=== PATIENT | male | born 1945 | race Caucasian/White ===

== ENCOUNTER 2019-12-18 22:42 | Emergency (ER) | payer OTHER ==
[2019-12-18 23:04] VITALS: BP 109/63; TEMP 97.6; BMI 25.7
--- NOTE | 2019-12-18 23:05 | PDOC ---
History of Present Illness - General Chief Complaint: Trach Tube Replacement Stated Complaint: PULLED OUT TRACH TUBE Time Seen by Provider: 12/18/19 23:05 History Source: Patient Exam Limitations: No Limitations - History of Present Illness Initial Comments: 12/18/19 23:23 74yM w PMHx HTN, HLD, DM, ESRD on HD, delirium, c diff on vanc, COPD, presenting from [facility] after pulling out trach tube. Shiley #6 cuffless tube. O2sat wnl on RA. On enteral tube feeds. Was trached 3 weeks ago for acute respiratory failure, sent to [facility] for rehab. Currently being treated w vanc for c diff. Denies fever, cough, chest pain, SOB Code : DNR Dr Lalito Staples - [phone] PCP - advised put trach back in, send home Past History - Psycho Social/Smoking Cessation Hx Smoking History: Unknown if ever smoked Have you smoked in the past 12 months: No Information on smoking cessation initiated: No Hx Alcohol Use: No Drug/Substance Use Hx: No Review of Systems - Review of Systems Constitutional: No: Chills, Fever HEENTM: No: Eye Pain, Ear Discharge, Nose Pain Respiratory: No: Cough, Shortness of Breath Cardiac (ROS): No: Chest Pain, Palpitations ABD/GI: No: Constipated, Diarrhea, Nausea, Vomiting : No: Burning, Dysuria Musculoskeletal: No: Back Pain, Joint Pain Integumentary: No: Bruising, Dryness Neurological: No: Headache, Seizure Psychiatric: No: Anxiety, Depression Endocrine: No: Intolerance to Cold, Intolerance to Heat Hematologic/Lymphatic: No: Anemia, Blood Clots *Physical Exam - Vital Signs Last Vital Signs Temp Pulse Resp BP Pulse Ox 97.6 F 79 22 H 109/63 97 12/18/19 23:02 12/18/19 23:02 12/18/19 23:02 12/18/19 23:02 12/18/19 23:02 - Physical Exam General Appearance: Yes: Nourished, Appropriately Dressed. No: Apparent Distress HEENT: positive: EOMI, MARLA, Hearing Grossly Normal. negative: Normal Voice, Scleral Icterus (R), Scleral Icterus (L) Neck: positive: Other (trach indentation non erythematous covered w gauze) Respiratory/Chest: positive: Lungs Clear, Normal Breath Sounds. negative: Chest Tender, Respiratory Distress, Crackles, Rales, Rhonchi, Stridor, Wheezing Cardiovascular: positive: Regular Rhythm, S1, S2, Tachycardia, Diastolic Murmur , Systolic Murmur Integumentary: positive: Normal Color Neurologic: positive: tube heater II-XII NML intact, Fully Oriented, Alert, Normal Mood/ Affect, Normal Response, Responsive. negative: Numbness, Confused, Disoriented Medical Decision Making - Medical Decision Making 12/18/19 23:41 74yM w PMHx HTN, HLD, DM, ESRD on HD, delirium, c diff on vanc, COPD, presenting from [facility] after pulling out trach tube (Shiley #6 cuffless). O2sat wnl on RA, no respiratory distress. Hospital does not have cuffless tubes. PCP called, advised us to not replace tracheostomy tube and DC DC home Discharge - Discharge Information Problems reviewed: Yes Clinical Impression/Diagnosis: Tracheostomy malfunction Condition: Good Disposition: HOME - Admission No - Follow up/Referral - Patient Discharge Instructions Additional Instructions: Follow up with your primary care doctor. - Post Discharge Activity
--- NOTE | 2019-12-18 23:34 | PDOC ---
Attending Attestation - Resident Resident Name: KhoiNils - ED Attending Attestation I have performed the following: I have examined & evaluated the patient, The case was reviewed & discussed with the resident, I agree w/resident's findings & plan - HPI HPI: 12/18/19 23:33 Pt comes with trach collar out. He has no difficulty breathing. 12/19/19 21:21 Pt had trach collar and PEG tube placed due to his obtunded state in the recent past. He states that his daughter found him down. He was admitted to the hospital and moved to rehab. Currently speaking normally, no SOB. Pt states that he will have a swallowing study eval and that he will get PEG tube reversal if normal exam. - Physicial Exam PE: 12/19/19 21:24 Agree with resident exam Pt is afebrile Alert and oriented. Pt has a resting tremor that gets a little worse with moevment Pt has PEG tube in place. He is moving all extremities, but generalized weakness 3/5 in all 4 ext Pt has thin legs; muscle wasting. - Medical Decision Making 12/19/19 21:26 Pt is stable to return to the DC. He is awaiting transport back; signed out to the day team
[2019-12-18 23:49] VITALS: PULSE 78
== END 2019-12-19 02:40 ==
LOC: JER 22:42
DX: J95.09 Other tracheostomy complication (principal); I12.0 Hypertensive chronic kidney disease with stage 5 chronic kidney disease or end stage renal disease; N17.8 Other acute kidney failure; E11.22 Type 2 diabetes mellitus with diabetic chronic kidney disease; N18.6 End stage renal disease; Z99.2 Dependence on renal dialysis; E78.5 Hyperlipidemia, unspecified; J44.9 Chronic obstructive pulmonary disease, unspecified; R41.0 Disorientation, unspecified; Z86.19 Personal history of other infectious and parasitic diseases; Z79.2 Long term (current) use of antibiotics; Z93.1 Gastrostomy status; Z87.09 Personal history of other diseases of the respiratory system
CPT/HCPCS: 99281-25

== ENCOUNTER 2019-12-20 02:25 | Inpatient (IN) | payer OTHER, BC ==
[2019-12-20 02:32] VITALS: BMI 25.0
--- NOTE | 2019-12-20 02:35 | PDOC ---
History of Present Illness - General Chief Complaint: Vomiting Blood Stated Complaint: VOMITING BLOOD Time Seen by Provider: 12/20/19 02:34 - History of Present Illness Initial Comments: HPI: 74yo M w PMH of HTN, HLD, DM, ESRD on HD, delirium, c diff on vanc, COPD, presenting from [facility] with hematesis. O2sat wnl on RA. On enteral tube feeds. Was trached 3 weeks ago for acute respiratory failure, sent to [facility] for rehab. Currently being treated with vanc for c diff. Was in this ER yesterday after pulling out his trach tube. Per EMS report, patient with about 200cc of vomited blood. Complaining of abdominal pain. PCP: Dr Lalito Staples - [phone] ROS: unable to complete (critically ill) PE: General: Awake, eyes closed Head: No signs of trauma Eyes: EOMI, sclera anicteric ENT: Dried blood at the mouth Neck: Normal ROM, supple Lungs: Lungs clear, Normal breath sounds Cardio: Regular rhythm, S1 and S2 present Abdomen: Soft, nontender. PEG tube in place Extremities: Distal pulses present SKIN: Warm, Dry, normal turgor Neurologic: Cranial nerves II through XII grossly intact. Normal speech Rectal: The skin is without erythema or induration. No external hemorrhoids, fissures, skin tags, warts, or discharge. Sphincter tone normal. There are no masses palpated on digital exam. Black stool. ED Course/MDM: DDX including but not limited to GI bleed, upper vs. lower, malignancy Labs Patient is known DNR Patient states his son and daughter make medical decisions for him Spoke with patient's daughter Lisa, Patient does not desire extensive life-saving measures Verified that his code status is DNR/DNI In the event that he requires blood, his daughter consents to blood transfusion 12/20/19 02:57 CBC WBC 15.3 K/mm3 (4.0-10.0) H 12/20/19 02:46 RBC 1.80 M/mm3 (4.00-5.60) L 12/20/19 02:46 Hgb 6.3 GM/dL (11.7-16.9) L* 12/20/19 02:46 Hct 19.0 % (35.4-49) L 12/20/19 02:46 MCV 105.5 fl (80-96) H 12/20/19 02:46 MCH 35.1 pg (25.7-33.7) H 12/20/19 02:46 MCHC 33.3 g/dl (32.0-35.9) 12/20/19 02:46 RDW 16.9 % (11.9-15.9) H 12/20/19 02:46 Plt Count 467 K/MM3 (134-434) H 12/20/19 02:46 MPV 8.2 fl (7.5-11.1) 12/20/19 02:46 Absolute Neuts (auto) 10.9 K/mm3 (1.5-8.0) H 12/20/19 02:46 Neutrophils % 71.2 % (42.8-82.8) 12/20/19 02:46 Lymphocytes % 18.5 % (8-40) 12/20/19 02:46 Monocytes % 6.4 % (3.8-10.2) 12/20/19 02:46 Eosinophils % 2.7 % (0-4.5) 12/20/19 02:46 Basophils % 1.2 % (0-2.0) 12/20/19 02:46 Nucleated RBC % 0 % (0-0) 12/20/19 02:46 Leukocytosis Hgb 6.3; 2 u prbc's ordered CMP Sodium 136 mmol/L (136-145) 12/20/19 02:46 Potassium 4.0 mmol/L (3.5-5.1) 12/20/19 02:46 Chloride 96 mmol/L (98-107) L 12/20/19 02:46 Carbon Dioxide 24 mmol/L (21-32) 12/20/19 02:46 Anion Gap 17 MMOL/L (8-16) H 12/20/19 02:46 BUN 123.2 mg/dL (7-18) H* 12/20/19 02:46 Creatinine 9.7 mg/dL (0.55-1.3) H* 12/20/19 02:46 Est GFR (CKD-EPI)AfAm 5.52 12/20/19 02:46 Est GFR (CKD-EPI)NonAf 4.77 12/20/19 02:46 Random Glucose 246 mg/dL (74-106) H 12/20/19 02:46 Lactic Acid 4.6 mmol/L (0.4-2.0) H* 12/20/19 02:46 Calcium 9.4 mg/dL (8.5-10.1) 12/20/19 02:46 Total Bilirubin 0.3 mg/dL (0.2-1) 12/20/19 02:46 AST 85 U/L (15-37) H 12/20/19 02:46 ALT 99 U/L (13-61) H 12/20/19 02:46 Alkaline Phosphatase 193 U/L (45-117) H 12/20/19 02:46 Troponin I < 0.02 ng/ml (0.00-0.05) 12/20/19 02:46 Total Protein 5.4 g/dl (6.4-8.2) L 12/20/19 02:46 Albumin 2.6 g/dl (3.4-5.0) L 12/20/19 02:46 Electrolytes unremarkable BUN and Cr elevated lacate 4.6 Tpn undetectable FOBT positive 12/20/19 03:40 EKG: rate 76, Qtc 504, NSR, left anterior fascicular block, no previous EKGs for comparison Call to GI, Discussed case with Dr. Tillman We will contact family member If they consent to colonoscopy, patient should be admitted to the ICU Consult placed 12/20/19 04:12 Call to patient's daughter who verbally consents to blood transfusion She consents to colonoscopy 12/20/19 04:15 ICU consulted; awaiting callback 12/20/19 04:[address] Castellano who accepted patient for admission under Dr. Mckeon 12/20/19 05:05 Last HR 91, BP 132/91 12/20/19 06:43 Discussed case with ICU resident, Dr. Cesar Patient signed out to Dr. Still and day team Past History - Past Medical History Allergies/Adverse Reactions: Allergies Allergy/AdvReac Type Severity Reaction Status Date / Time No Known Allergies Allergy Verified 12/20/19 02:32 Home Medications: Ambulatory Orders Albuterol 2.5/Ipratropium 0.5 [Duoneb -] 1 neb IH QID PRN 12/20/19 Amiodarone HCl 200 mg GT DAILY 12/20/19 Aspirin 81 mg GT DAILY 12/20/19 Atorvastatin Ca [Lipitor] 80 mg PO HS 12/20/19 Bacitracin - [Bacitracin Topical Ointment -] 1 applic TP BID 12/20/19 Metoprolol Tartrate 12.5 mg GT BID 12/20/19 Midodrine HCl 10 mg PO WEEKLY 12/20/19 Multivitamin [Multiple Vitamins] 1 each GT DAILY 12/20/19 Omeprazole Magnesium [Prilosec Otc] 20 mg GT DAILY 12/20/19 Anemia: Yes Cardiac Disorders: Yes COPD: No Disorders: Yes (ESRD DIALYSIS) Hypercholesterolemia: Yes Psychiatric Problems: Yes - Psycho Social/Smoking Cessation Hx Smoking History: Unknown if ever smoked Have you smoked in the past 12 months: No Hx Alcohol Use: No Drug/Substance Use Hx: No *Physical Exam - Vital Signs Last Vital Signs Temp Pulse Resp BP Pulse Ox 78 22 H 123/47 L 93 L 12/20/19 02:28 12/20/19 02:28 12/20/19 02:28 12/20/19 02:28 ED Treatment Course - LABORATORY CBC & Chemistry Diagram: 12/20/19 02:46 12/20/19 02:46 Discharge - Discharge Information Problems reviewed: Yes Clinical Impression/Diagnosis: GI bleed Qualifiers: GI bleed type/associated pathology: unspecified gastrointestinal hemorrhage type Qualified Code(s): K92.2 - Gastrointestinal hemorrhage, unspecified Condition: Guarded - Admission Yes - Follow up/Referral - Patient Discharge Instructions - Post Discharge Activity
--- NOTE | 2019-12-20 02:49 | PDOC ---
Attending Attestation - Resident Resident Name: Marietta Putnam - ED Attending Attestation I have performed the following: I have examined & evaluated the patient, The case was reviewed & discussed with the resident, I agree w/resident's findings & plan - HPI HPI: 12/20/19 03:30 Pt comes with coffee ground emesis and he has guaiac + stool He has dark stool all over the bed. Pt was here yesterday for having pulled out his trach collar. Pt has his PEG in place. He has normal heart rate and stable BP despite the emesis and the large BM. - Physicial Exam PE: 12/20/19 03:38 Pt is pale and he has small bruises on his abdomen; unclear if they are from injections or bruising. Pt is on dialysis (limb alert on the left arm. Pt likely gets heparin at dialysis) Pt is afebrile He has no rashes No flank pain No abd pain PEG in place, Pt is covered in sool and vomitus. - Medical Decision Making 12/20/19 03:31 Stool guaiac + 12/20/19 03:31 INR is 1.0 12/20/19 03:48 chem pending 12/20/19 03:49 Pt will be admitted for GI bleed; for diarrhea and C.difficile 12/20/19 03:57 Pt will be admitted to [facility] [employer] 12/20/19 04:35 BUN/Cr elevated Stool occult positive Pt will be admitted for blood transfusion and cdiff 12/20/19 04:36 I spoke to pt's daughter and she agrees to the transfusion we got 2 PC. Heart Score/ECG Review - ECG Intrepretation Rhythm: Regular Rhythm - Felton Felton: Normal - QRS Poor R Wave Progression: No Q Wave Present: No - ST and T Early Repolarization: No Non Specific ST-T Wave changes: No Flattened T Waves: No - ECG Impressions Normal ECG: Yes Non-specific ST Elevation: No Ischemic Changes: No Bradycardia: No Torsades andrea Pointes: No WPW: No
[2019-12-20] MEDS ORDERED: SODIUM CHLORIDE 0.9% 500 ML INFUS.BAG IV ONE (02:51)
[2019-12-20] MEDS ORDERED: PANTOPRAZOLE SODIUM 40 MG VIAL IVPUSH ONE (02:51)
[2019-12-20] MEDS ORDERED: PANTOPRAZOLE SODIUM 40 MG VIAL ONE ×2 (03:23→07:06)
[2019-12-20 03:27] LABS: BASO % 1.2 % (0-2.0); EOS % 2.7 % (0-4.5); INR 0.98 (0.83-1.09); LYMPH % 18.5 % (8-40); MCH 35.1 pg (25.7-33.7); MCHC 33.3 g/dl (32.0-35.9); MEAN CELL VOLUME 105.5 fl (80-96); MEAN PLT VOLUME 8.2 fl (7.5-11.1); MONO % 6.4 % (3.8-10.2); NEUT % 71.2 % (42.8-82.8); PLATELET COUNT 467 K/MM3 (134-434); PROTHROMBIN TIME (PATIENT) 11.6 SEC (9.7-13.0); RDW 16.9 % (11.9-15.9); WHITE BLOOD COUNT 15.3 K/mm3 (4.0-10.0)
[2019-12-20 03:29] LABS: ACTIVATED PTT 27.3 SECONDS (25.2-36.5)
[2019-12-20 03:32] LABS: HEMOGLOBIN 6.3 GM/dL (11.7-16.9)
[2019-12-20 03:49] LABS: ALBUMIN 2.6 g/dl (3.4-5.0); BILIRUBIN,TOTAL 0.3 mg/dL (0.2-1); CALCIUM 9.4 mg/dL (8.5-10.1); TOT PROT 5.4 g/dl (6.4-8.2)
[2019-12-20 03:51] LABS: BLOOD UREA NITROGEN 123.2 mg/dL (7-18)
[2019-12-20 03:52] LABS: CREATININE 9.7 mg/dL (0.55-1.3)
[2019-12-20 04:52] LABS: ANISOCYTOSIS 1+; MACROCYTOSIS 1+
[2019-12-20 04:53] LABS: PLATELET ESTIMATE SLT INCREASE
[2019-12-20] MEDS ORDERED: INSULIN SLIDING SCALE (NOVOLOG) 1 VIAL SQ SCH (05:30)
--- NOTE | 2019-12-20 05:40 | PN ---
Teaching Attending Note Name of Resident: eTja Castellano ATTENDING PHYSICIAN STATEMENT I saw and evaluated the patient. I reviewed the resident's note and discussed the case with the resident. I agree with the resident's findings and plan as documented. History was obtained from EMR as patient was not providing history SUBJECTIVE: 74yo M w PMH of HTN, HLD, DM, ESRD on HD, delirium, c diff on vanc, COPD, presenting from [facility] with hematesis. On enteral tube feeds. Was trached 3 weeks ago for acute respiratory failure, sent to [facility] for rehab. Currently being treated with vanc for c diff. Per EMS report, patient with about 200cc of vomited blood. Complaining of abdominal pain. OBJECTIVE: Last Vital Signs Temp Pulse Resp BP Pulse Ox 78 22 H 123/47 L 93 L 12/20/19 02:28 12/20/19 02:28 12/20/19 02:28 12/20/19 02:28 GENERAL: Well developed, well nourished. Awake and alert. In some respiratory distress. HEENT: Normocephalic, atraumatic. PERRLA, EOMI. No conjunctival pallor. Dark red blood around oral cavity NECK: Supple. Full ROM. No JVD. Carotid pulses 2+ and symmetric, without bruits. No thyromegaly. No lymphadenopathy. CARDIOVASCULAR: Regular rate and rhythm. No murmurs, rubs, or gallops. Distal pulses are 2+ and symmetric. PULMONARY: No evidence of respiratory distress. Lungs clear to auscultation bilaterally. No wheezing, rales or rhonchi. ABDOMINAL: Soft. Non-tender. Non-distended. No rebound or guarding. No organomegaly. Normoactive bowel sounds. MUSCULOSKELETAL Normal range of motion at all joints. No bony deformities or tenderness. No CVA tenderness. EXTREMITIES: No cyanosis. No clubbing. No edema. No calf tenderness. SKIN: Warm and dry. Normal capillary refill. No rashes. No jaundice. PSYCHIATRIC: Uncooperative, in some distress Abnormal Lab Results 12/20/19 12/20/19 12/20/19 02:46 02:46 02:46 WBC 15.3 H RBC 1.80 L Hgb 6.3 L* Hct 19.0 L MCV 105.5 H MCH 35.1 H RDW 16.9 H Plt Count 467 H Absolute Neuts (auto) 10.9 H Chloride 96 L Anion Gap 17 H BUN 123.2 H* Creatinine 9.7 H* Random Glucose 246 H Lactic Acid 4.6 H* AST 85 H ALT 99 H Alkaline Phosphatase 193 H Total Protein 5.4 L Albumin 2.6 L Crossmatch 12/20/19 02:46 WBC RBC Hgb Hct MCV MCH RDW Plt Count Absolute Neuts (auto) Chloride Anion Gap BUN Creatinine Random Glucose Lactic Acid AST ALT Alkaline Phosphatase Total Protein Albumin Crossmatch See Detail Imaging studies reviewed ASSESSMENT AND PLAN: 74-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 Suspect upper GI bleed but also cannot rule out lower GI bleed. Patient is hemodynamically stable at this time however is found to have severe microcytic anemia, likely acute in onset. Also noted to have significant lactic acidosis and leukocytosis. Cannot rule out underlying sepsis. Will treat empirically with vancomycin and Zosyn and consult infectious disease service. Will repeat lactic acid to ensure it is downtrending. Avoid overhydration as patient is end-stage renal disease. Patient with history of C. difficile colitis, was taking p.o. vancomycin allegedly since December 11. Rule out underlying worsening C. difficile colitis. Admit to ICU N.p.o. except for p.o. vancomycin GI evaluation emergently Protonix drip Avoid NSAIDs Monitor vital signs closely #C. difficile colitis on p.o. vancomycin P.o. vancomycin 125 mg every 6 hours #ESRD on HD Renal consult for hemodialysis Sodium bicarb Calcitriol and ergocalciferol #COPD DuoNebs every 6 hours as needed #DVT prophylaxisSCDs Advanced directivespatient is DNR/DNI
[2019-12-20] MEDS ORDERED: PIPERACILLIN/TAZOB 3.375 GM 3.375 GM in DEXTROSE 5%-WATER - 50 ML IVPB ONE (05:49)
[2019-12-20] MEDS ORDERED: VANCOMYCIN 1 GM in D5W (PRE-DOCKED) 1,000 MG/250 ML IVPB ONE (05:54)
[2019-12-20] MEDS ORDERED: VANCOMYCIN 250 MG/5 ML ORAL SOLUTION GT SCH (06:00)
[2019-12-20] MEDS ORDERED: PANTOPRAZOLE SODIUM 80 MG in SODIUM CHLORIDE 100 ML IVPB SCH (06:00)
--- NOTE | 2019-12-20 06:09 | HP ---
CHIEF COMPLAINT: vomiting blood PCP: Dr. Lalito Staples HISTORY OF PRESENT ILLNESS: Trev Carter is a 74 year old male with a past medical history of HTN, HLD, DM, ESRD on dialysis, c diff on vancomycin, COPD, GERD, who presents after an episode of vomiting blood. Patient was at [facility] after having a trach placed due to acute respiratory failure and was at [facility] for rehab. Patient was at this ER yesterday after he pulled his trach out and PCP was contacted and stated not to replace the trach. As per EMS report, the patient had vomited 200cc of bright red blood. ED noted that the patient had melena and continued to intermittently vomit bright red blood. Patient is intermittently oriented and not able to give much history. He notes that he has abdominal pain but is unable to characterize it or provide other history. No history is noted on the paperwork that came with the patient as to any liver disease. Has GERD but without esophagitis. No NSAIDS noted on the home medications. ER course was notable for: (1) RR 22 (2) WBC 15.3, Hgb 6.3, Hct 19.0, BUN 123.2, CRE 9.7, lactic 4.6, GLU 246, AST 85 , ALT 94, ALk phos 193, ALb 2.6 (3) FOBT positive (4) CXR without acute pathology, but noted with some pulmonary vascular congestion Recent Travel: denies PAST MEDICAL HISTORY: as above PAST SURGICAL HISTORY: unable to obtain Social History: Unable to obtain. Currently at [facility] Allergies No Known Allergies Allergy (Verified 12/20/19 02:32) HOME MEDICATIONS: Home Medications Medication Instructions Recorded Albuterol 2.5/Ipratropium 0.5 1 neb IH QID PRN 12/20/19 [Duoneb -] Amiodarone HCl 200 mg GT DAILY 12/20/19 Aspirin 81 mg GT DAILY 12/20/19 Atorvastatin Ca [Lipitor] 80 mg PO HS 12/20/19 Bacitracin - [Bacitracin Topical 1 applic TP BID 12/20/19 Ointment -] Metoprolol Tartrate 12.5 mg GT BID 12/20/19 Midodrine HCl 10 mg PO WEEKLY 12/20/19 Multivitamin [Multiple Vitamins] 1 each GT DAILY 12/20/19 Omeprazole Magnesium [Prilosec Otc] 20 mg GT DAILY 12/20/19 REVIEW OF SYSTEMS Complains of abdominal pain. Unable to give more history due to confusion. PHYSICAL EXAMINATION Vital Signs - 24 hr 12/20/19 02:28 Pulse Rate 78 Respiratory 22 H Rate Blood Pressure 123/47 L O2 Sat by Pulse 93 L Oximetry (%) GENERAL: Awake, alert, and oriented to self only intermittently. Tremorous. HEAD: Normal with no signs of trauma. EYES: Scleral icterus noted. Pupils sluggish reaction to light. EARS, NOSE, THROAT: Noted dried blood on mucous membranes and tongue. LUNGS: Coarse breath sounds throughout. No noted wheezes or crackles. Use of accessory muscles. HEART: Regular rate and rhythm, normal S1 and S2 without murmur, rub. ABDOMEN: Soft, nontender, not distended, hypoactive bowel sounds, no guarding, no rebound, no masses. UPPER EXTREMITIES: 2+ pulses, warm, well-perfused. No cyanosis. No clubbing. No peripheral edema. LOWER EXTREMITIES: 2+ pulses, warm, well-perfused. No calf tenderness. No peripheral edema. NEUROLOGICAL: Moving all limbs spontaneously. Not withdrawing to painful stimuli. Tracks with eyes. PSYCHIATRIC: Confused intermittently. Unable to follow directions well. SKIN: Jaundiced skin, dry. Laboratory Results - last 24 hr 12/20/19 12/20/19 12/20/19 02:46 02:46 02:46 WBC 15.3 H RBC 1.80 L Hgb 6.3 L* Hct 19.0 L MCV 105.5 H MCH 35.1 H MCHC 33.3 RDW 16.9 H Plt Count 467 H MPV 8.2 Absolute Neuts (auto) 10.9 H Total Counted 100 Neutrophils % 71.2 Neutrophils % (Manual) 68.0 Band Neutrophils % 10.0 Lymphocytes % 18.5 Lymphocytes % (Manual) 11.0 Monocytes % 6.4 Monocytes % (Manual) 6 Eosinophils % 2.7 Eosinophils % (Manual) 3.0 Basophils % 1.2 Nucleated RBC % 0 Metamyelocytes 1 Hypochromia 2+ Platelet Estimate Slt increase Platelet Comment No clumping noted Polychromasia 1+ Anisocytosis 1+ Macrocytosis 1+ PT with INR 11.60 INR 0.98 PTT (Actin FS) 27.3 Sodium 136 Potassium 4.0 Chloride 96 L Carbon Dioxide 24 Anion Gap 17 H BUN 123.2 H* Creatinine 9.7 H* Est GFR (CKD-EPI)AfAm 5.52 Est GFR (CKD-EPI)NonAf 4.77 Random Glucose 246 H Lactic Acid Calcium 9.4 Total Bilirubin 0.3 AST 85 H ALT 99 H Alkaline Phosphatase 193 H Troponin I Total Protein 5.4 L Albumin 2.6 L Stool Occult Blood Blood Type Antibody Screen Crossmatch 12/20/19 12/20/19 12/20/19 02:46 02:46 02:46 WBC RBC Hgb Hct MCV MCH MCHC RDW Plt Count MPV Absolute Neuts (auto) Total Counted Neutrophils % Neutrophils % (Manual) Band Neutrophils % Lymphocytes % Lymphocytes % (Manual) Monocytes % Monocytes % (Manual) Eosinophils % Eosinophils % (Manual) Basophils % Nucleated RBC % Metamyelocytes Hypochromia Platelet Estimate Platelet Comment Polychromasia Anisocytosis Macrocytosis PT with INR INR PTT (Actin FS) Sodium Potassium Chloride Carbon Dioxide Anion Gap BUN Creatinine Est GFR (CKD-EPI)AfAm Est GFR (CKD-EPI)NonAf Random Glucose Lactic Acid 4.6 H* Calcium Total Bilirubin AST ALT Alkaline Phosphatase Troponin I < 0.02 Total Protein Albumin Stool Occult Blood Blood Type O POSITIVE Antibody Screen Negative Crossmatch See Detail 12/20/19 02:57 WBC RBC Hgb Hct MCV MCH MCHC RDW Plt Count MPV Absolute Neuts (auto) Total Counted Neutrophils % Neutrophils % (Manual) Band Neutrophils % Lymphocytes % Lymphocytes % (Manual) Monocytes % Monocytes % (Manual) Eosinophils % Eosinophils % (Manual) Basophils % Nucleated RBC % Metamyelocytes Hypochromia Platelet Estimate Platelet Comment Polychromasia Anisocytosis Macrocytosis PT with INR INR PTT (Actin FS) Sodium Potassium Chloride Carbon Dioxide Anion Gap BUN Creatinine Est GFR (CKD-EPI)AfAm Est GFR (CKD-EPI)NonAf Random Glucose Lactic Acid Calcium Total Bilirubin AST ALT Alkaline Phosphatase Troponin I Total Protein Albumin Stool Occult Blood Positive Blood Type Antibody Screen Crossmatch EKG--> NSR, T wave inversion in III, QTc prolonged at 504 ASSESSMENT/PLAN: Trev Carter is a 74 year old male with a past medical history of HTN, HLD, DM, ESRD on dialysis, c diff on vancomycin, COPD, GERD admitted for likely upper GI bleed. Upper GI bleed - unclear in what setting had developed GI bleed - GI consulted, aware and will go for scope in the morning - Protonix drip - lactic 4.6, continue to monitor - transfusing 2 units PRBCs, continue to monitor H/H - consider platelet transfusion in setting of aspirin use at facility, current platelets at 467 - FOBT positive - Abd/pelvis CT to determine further causes of bleed and rule out infectious pathology in setting of WBC and elevated RR - Vanco/Zosyn in setting of possible infectious cause/abdominal pathology - ID consulted - ICU consulted - hold home aspirin ESRD - nephrology consulted - caution with fluids Transaminitis - unclear cause - abd/pelvis CT - tylenol level - acute hepatitis panel/HCV C. diff - continue vancomycin 125 q6h - need to clarify how long should be on medication, as per records was started on 12/11 for 5 days but medication still part of MAR as of this admission COPD - duoneb qid prn DM - BGM - ISS HTN/HLD/orthostatic hypotension/hx of supraventricular tachycardia - can restart home medications when clinically appropriate DVT PPx - SCDs - avoid chemical prophylaxis in setting of GI bleed FEN - no standing fluids in setting of ESRD, caution with fluids, receiving blood products - continue to monitor electrolytes and replete as necessary - NPO pending scope procedures Dispo - admit to ICU Family Medical History Family History: Unable to Obtain Visit type - Emergency Visit Emergency Visit: Yes ED Registration Date: 12/20/19 Care time: The patient presented to the Emergency Department on the above date and was hospitalized for further evaluation of their emergent condition. - New Patient This patient is new to me today: Yes Date on this admission: 12/20/19 - Critical Care Critical Care patient: No
[2019-12-20] MEDS ORDERED: ALBUTEROL SO4 2.5/IPRATROPIUM 0.5 INH SOL 3 ML VIAL.NEB. NEB PRN (06:13)
[2019-12-20] MEDS ORDERED: TRIMETHOBENZAMIDE HCL 200MG/2ML INJ IM ONE (06:20)
[2019-12-20] MEDS ORDERED: PIPERACILLIN/TAZOB 3.375 GM 3.375 GM/50 ML BAG IVPB ONE (07:06)
[2019-12-20] MEDS ORDERED: VANCOMYCIN 1 GRAM (PRE-DOCKED) 1,000 MG/250 ML BAG IVPB ONE (07:06)
--- NOTE | 2019-12-20 07:34 | CONSULT ---
Consult Consult Specialty:: Critical care Reason for Consultation:: GI bleed - History of Present Illness Chief Complaint: Hematemesis, melena History of Present Illness: 74 year old male with a past medical history of HTN, HLD, DM, ESRD on dialysis, c diff on vancomycin, COPD, GERD who was BIBEMS from [facility] for hematemesis and melena. Patient was found to have a Hb 6.3 with borderline SBP in the low 100's. FOBT positive in the ED. Upon interview, the patient is minimally responsive, so the history was obtained from the medical chart. Per EMR and family, the patient is verbal at baseline, but confused. Patient is DNR/DNI, confirmed with the patient's daughter by ED staff. The daughter consents to blood transfusion and colonoscopy at this time. - History Source History Provided By: Medical Record Limitations to Obtaining History: Clinical Condition - Alcohol/Substance Use Hx Alcohol Use: No - Smoking History Smoking history: Unknown if ever smoked Have you smoked in the past 12 months: No Home Medications - Allergies Allergies/Adverse Reactions: Allergies Allergy/AdvReac Type Severity Reaction Status Date / Time No Known Allergies Allergy Verified 12/20/19 02:32 - Home Medications Home Medications: Ambulatory Orders Albuterol 2.5/Ipratropium 0.5 [Duoneb -] 1 neb IH QID PRN 12/20/19 Amiodarone HCl 200 mg GT DAILY 12/20/19 Aspirin 81 mg GT DAILY 12/20/19 Atorvastatin Ca [Lipitor] 80 mg PO HS 12/20/19 Bacitracin - [Bacitracin Topical Ointment -] 1 applic TP BID 12/20/19 Metoprolol Tartrate 12.5 mg GT BID 12/20/19 Midodrine HCl 10 mg PO WEEKLY 12/20/19 Multivitamin [Multiple Vitamins] 1 each GT DAILY 12/20/19 Omeprazole Magnesium [Prilosec Otc] 20 mg GT DAILY 12/20/19 Review of Systems Unable to obtain ROS, reason: clinical status Physical Exam Vital Signs: Vital Signs Temperature Pulse Rate 88 12/20/19 06:32 Respiratory Rate 24 H 12/20/19 06:32 Blood Pressure 119/60 12/20/19 06:32 O2 Sat by Pulse Oximetry (%) 90 L 12/20/19 06:32 Constitutional: Yes: Cachectic, Mild Distress, Poor Hygeine HENT: Yes: Other (dried blood noted in the oropharynx) Cardiovascular: Yes: Regular Rate and Rhythm, S1, S2. No: JVD, Gallop, Murmur, Rub Respiratory: Yes: Regular, Wheezes (coarse inspiratory wheezes noted bilaterally ) Gastrointestinal: Yes: Normal Bowel Sounds, Other (drifted blood noted in the) ...Rectal Exam: Yes: Other (unable to perform rectal exam at the time of interview due to patient's unstable hemodynamics.) Labs: CBC, BMP 12/20/19 02:46 12/20/19 02:46 Assessment/Plan 74 yo m w/ multiple comorbidities who comes into from [facility] for melena and hematemesis. Hb 6.3, BP's borderline at the time of evaluation. The patient has had several episodes of hematememsis or bright red blood during his stay in the ED. #Neuro -Patient altered on interview -baseline mental status unknown at this time, will contact family at this time. #Cardio -BP borderline at this time and dropping -heart regular rate and rhythm, patient under beta blockade -holding beta blockers and antihypertensives while BP borderline #GI -hematemesis and melena in [place] -continues to show stigmata of bleeding while in the ED -BP borderline at this time. -2U PRBC ordered -20g x2 placed -will resuscitate with IVF #Heme -holding AC while actively bleeding #Dispo -will accept patient to ICU for further monitoring/resuscitation
[2019-12-20] MEDS ORDERED: GLUCAGON 1 MG KIT IVPUSH ONE (07:39)
[2019-12-20] MEDS ORDERED: GlUCAGON HUMAN RECOMBINANT 1 MG/VIAL ONE (07:49)
[2019-12-20] MEDS ORDERED: ONDANSETRON 4 MG/2 ML VIAL IVPUSH ONE (07:52)
--- NOTE | 2019-12-20 08:23 | PDOC ---
*Physical Exam - Vital Signs Last Vital Signs Temp Pulse Resp BP Pulse Ox 88 24 H 119/60 90 L 12/20/19 06:32 12/20/19 06:32 12/20/19 06:32 12/20/19 06:32 <TessySg - Last Filed: 12/20/19 08:22> - Vital Signs Last Vital Signs Temp Pulse Resp BP Pulse Ox 88 24 H 119/60 90 L 12/20/19 06:32 12/20/19 06:32 12/20/19 06:32 12/20/19 06:32 <Marietta Card - Last Filed: 12/20/19 09:14> ED Treatment Course - LABORATORY CBC & Chemistry Diagram: 12/20/19 02:46 12/20/19 02:46 - ADDITIONAL ORDERS Additional order review: Laboratory Results 12/20/19 12/20/19 12/20/19 02:57 02:46 02:46 PT with INR INR PTT (Actin FS) Sodium Potassium Chloride Carbon Dioxide Anion Gap BUN Creatinine Est GFR (CKD-EPI)AfAm Est GFR (CKD-EPI)NonAf Random Glucose Lactic Acid Calcium Total Bilirubin AST ALT Alkaline Phosphatase Troponin I < 0.02 Total Protein Albumin Stool Occult Blood Positive Blood Type O POSITIVE Antibody Screen Negative Crossmatch See Detail 12/20/19 12/20/19 12/20/19 02:46 02:46 02:46 PT with INR 11.60 INR 0.98 PTT (Actin FS) 27.3 Sodium 136 Potassium 4.0 Chloride 96 L Carbon Dioxide 24 Anion Gap 17 H BUN 123.2 H* Creatinine 9.7 H* Est GFR (CKD-EPI)AfAm 5.52 Est GFR (CKD-EPI)NonAf 4.77 Random Glucose 246 H Lactic Acid 4.6 H* Calcium 9.4 Total Bilirubin 0.3 AST 85 H ALT 99 H Alkaline Phosphatase 193 H Troponin I Total Protein 5.4 L Albumin 2.6 L Stool Occult Blood Blood Type Antibody Screen Crossmatch 12/20/19 02:46 RBC 1.80 L MCV 105.5 H MCHC 33.3 RDW 16.9 H MPV 8.2 Neutrophils % 71.2 Lymphocytes % 18.5 Monocytes % 6.4 Eosinophils % 2.7 Basophils % 1.2 - Medications Given in the ED: ED Medications Discontinued Medications Generic Name Dose Route Start Last Admin Trade Name Freq PRN Reason Stop Dose Admin Piperacillin Sod/Tazobactam 50 mls @ 100 mls/hr 12/20/19 05:49 12/20/19 07:00 Sod 3.375 gm/ Dextrose IVPB 12/20/19 06:18 100 mls/hr ONCE ONE Administration Protocol Pantoprazole Sodium 40 mg 12/20/19 02:51 12/20/19 03:22 Protonix Iv IVPUSH 12/20/19 02:52 40 mg ONCE ONE Administration Sodium Chloride 1,000 ml 12/20/19 02:51 12/20/19 03:08 Normal Saline - IV 12/20/19 02:52 1,000 ml ONCE ONE Administration <Sg Still - Last Filed: 12/20/19 08:22> - LABORATORY CBC & Chemistry Diagram: 12/20/19 02:46 12/20/19 02:46 - ADDITIONAL ORDERS Additional order review: Laboratory Results 12/20/19 12/20/19 12/20/19 02:57 02:46 02:46 PT with INR INR PTT (Actin FS) Sodium Potassium Chloride Carbon Dioxide Anion Gap BUN Creatinine Est GFR (CKD-EPI)AfAm Est GFR (CKD-EPI)NonAf Random Glucose Lactic Acid Calcium Total Bilirubin AST ALT Alkaline Phosphatase Troponin I < 0.02 Total Protein Albumin Stool Occult Blood Positive Blood Type O POSITIVE Antibody Screen Negative Crossmatch See Detail 12/20/19 12/20/19 12/20/19 02:46 02:46 02:46 PT with INR 11.60 INR 0.98 PTT (Actin FS) 27.3 Sodium 136 Potassium 4.0 Chloride 96 L Carbon Dioxide 24 Anion Gap 17 H BUN 123.2 H* Creatinine 9.7 H* Est GFR (CKD-EPI)AfAm 5.52 Est GFR (CKD-EPI)NonAf 4.77 Random Glucose 246 H Lactic Acid 4.6 H* Calcium 9.4 Total Bilirubin 0.3 AST 85 H ALT 99 H Alkaline Phosphatase 193 H Troponin I Total Protein 5.4 L Albumin 2.6 L Stool Occult Blood Blood Type Antibody Screen Crossmatch 12/20/19 02:46 RBC 1.80 L MCV 105.5 H MCHC 33.3 RDW 16.9 H MPV 8.2 Neutrophils % 71.2 Lymphocytes % 18.5 Monocytes % 6.4 Eosinophils % 2.7 Basophils % 1.2 - Medications Given in the ED: ED Medications Discontinued Medications Generic Name Dose Route Start Last Admin Trade Name Lamar PRN Reason Stop Dose Admin Glucagon 1 mg 12/20/19 07:39 12/20/19 08:25 Glucagon - IVPUSH 12/20/19 07:40 1 mg ONCE ONE Administration Piperacillin Sod/Tazobactam 50 mls @ 100 mls/hr 12/20/19 05:49 12/20/19 07:00 Sod 3.375 gm/ Dextrose IVPB 12/20/19 06:18 100 mls/hr ONCE ONE Administration Protocol Pantoprazole Sodium 40 mg 12/20/19 02:51 12/20/19 03:22 Protonix Iv IVPUSH 12/20/19 02:52 40 mg ONCE ONE Administration Sodium Chloride 1,000 ml 12/20/19 02:51 12/20/19 03:08 Normal Saline - IV 12/20/19 02:52 1,000 ml ONCE ONE Administration Vancomycin HCl 1,000 mg 12/20/19 05:54 12/20/19 08:25 Vancomycin (Pre-Docked) IVPB 12/20/19 05:55 1,000 mg ONCE ONE Administration Protocol <Marietta Card - Last Filed: 12/20/19 09:14> Medical Decision Making - Medical Decision Making Will rapidly infuse 2 units of blood given pt's hypotension Pt accepted to ICU Will repeat CXR Daughter updated on pt's current condition by Dr. Mclean 12/20/19 08:22 <Sg Still - Last Filed: 12/20/19 08:22> - Medical Decision Making 12/20/19 09:03 Late entry. Patient was admitted to ICU on prior shift. He developed hypotension and lethargy shortly after shift change, then started to desat into the 60s. O2 given via NRB, IV fluids rapidly infused, blood bolused. Patient is DNR/DNI, also history of ESRD on HD. He will likely become fluid-overloaded from the fluids and blood, however, he is hypotensive at this point, must prioritize his BP. If he is stable enough, will need HD once BP improves. <Marietta Card - Last Filed: 12/20/19 09:14> Discharge - Discharge Information Problems reviewed: Yes - Admission Yes <Sg Still - Last Filed: 12/20/19 08:22> <Marietta Card - Last Filed: 12/20/19 09:14> - Discharge Information Clinical Impression/Diagnosis: GI bleed Qualifiers: GI bleed type/associated pathology: unspecified gastrointestinal hemorrhage type Qualified Code(s): K92.2 - Gastrointestinal hemorrhage, unspecified Condition: Critical
--- NOTE | 2019-12-20 09:01 | EKG ---
Test Reason : Blood Pressure : / mmHG Vent. Rate : 076 BPM Atrial Rate : 076 BPM P-R Int : 186 ms QRS Dur : 098 ms QT Int : 448 ms P-R-T Axes : 059 -72 027 degrees QTc Int : 504 ms NORMAL SINUS RHYTHM LEFT ANTERIOR FASCICULAR BLOCK RSR' OR QR PATTERN IN V1 SUGGESTS RIGHT VENTRICULAR CONDUCTION DELAY ( vs IRBBB) ABNORMAL ECG NO PREVIOUS ECGS AVAILABLE Confirmed by Valery Baker ([id number]) on 12/20/2019 9:01:14 AM Referred By: Confirmed By:Valery Baker
[2019-12-20 09:50] VITALS: BP 131/112; PULSE 62
[2019-12-20] MEDS ORDERED: BACITRACIN 15 GM TUBE TOPICAL OINTMENT TP SCH (10:00)
[2019-12-20] MEDS ORDERED: PANTOPRAZOLE SODIUM 40 MG VIAL IVPUSH SCH (10:00)
[2019-12-20] MEDS ORDERED: MUPIROCIN 2% TOPICAL OINTMENT FOR DECOLONIZATION NS SCH (10:00)
--- NOTE | 2019-12-20 10:51 | DS ---
Physical Examination Vital Signs: Vital Signs Temperature Pulse Rate 75 12/20/19 09:00 Respiratory Rate 20 12/20/19 09:00 Blood Pressure 82/47 L 12/20/19 09:00 O2 Sat by Pulse Oximetry (%) 92 L 12/20/19 09:00 Findings/Remarks: Patient was found to be unresponsive, with agonal breathing and was bradycardic. Patient is DNR/DNI from [facility]. Later then found to be pulseless, eyes fixed and dilated, no air entry. Patient was pronounced by ICU resident at 9:05 am. Labs: CBC, BMP 12/20/19 02:46 12/20/19 02:46 Discharge Summary Problems reviewed: Yes Reason For Visit: GASTROINTESTINAL HEMORRHAGE Current Active Problems GI bleed (Acute) Condition: - Instructions Referrals: Lalito Staples [Primary Care Provider] - - Home Medications Comprehensive Discharge Medication List: Ambulatory Orders Albuterol 2.5/Ipratropium 0.5 [Duoneb -] 1 neb IH QID PRN 12/20/19 Amiodarone HCl 200 mg GT DAILY 12/20/19 Aspirin 81 mg GT DAILY 12/20/19 Atorvastatin Ca [Lipitor] 80 mg PO HS 12/20/19 Bacitracin - [Bacitracin Topical Ointment -] 1 applic TP BID 12/20/19 Metoprolol Tartrate 12.5 mg GT BID 12/20/19 Midodrine HCl 10 mg PO WEEKLY 12/20/19 Multivitamin [Multiple Vitamins] 1 each GT DAILY 12/20/19 Omeprazole Magnesium [Prilosec Otc] 20 mg GT DAILY 12/20/19
--- NOTE | 2019-12-20 12:36 | PN ---
Progress Note (short form) - Note Progress Note: I was informed by the resident at 4am this morning that Mr Trev Carter with COPD, ESRD a DNR/DNI was transferred from [place] with hematemesis. I discussed the case with resident at length. The patient was noted to have HGb of 6 at that time had stable vital signs. Because of this, I advised the resident to transfuse 2 units of PRBC,give IV fluids and stabilize the patient. I also requested to obtain consent from a family emeber for possible emergent upper endoscopy once hemodynamically stable. The resident was advised to have 2 IV lines available just in case the patient will need further blood transfusions if patients blood pressure deteriorates. He had no history of aspirin, NSAID and anticoagulants as per discussion . The patient was scheduled for emergent upper endoscopy today . I was informed that the patient in the ICU upon transfer from the ER.
--- NOTE | 2019-12-20 16:14 | PN ---
Progress Note (short form) - Note Progress Note: was notified by the nurse that the patient was unresponsive. Patient DNR/DNI confirmed by ED staff with family this AM. On examination, the patient was unresponsive to noxious and verbal stimuli No chest rise observed pupils fixed and dilated No pulse palpated in the carotid, radial or femoral areas No heart sounds on auscultation in all heart dietz. Patient pronounced at 9:05 AM Primary team notified. Family notified.
[2019-12-20] MEDS ORDERED: CHLORHEXIDINE GLUCONATE 4% CLEANSER FOR DECOLONIZATION TP SCH (22:00)
== END 2019-12-20 09:05 | disposition expired | DRG 377 ==
LOC: JER 02:25 → JERBED 05:06 → JICU 08:49
PROVIDERS: ADMIT Internal Medicine; ATTEND Family Medicine
PROC: 30233N1 Transfusion of Nonautologous Red Blood Cells into Peripheral Vein, Percutaneous Approach (ICD-10-PCS; principal; 2019-12-20)
DX: K92.2 Gastrointestinal hemorrhage, unspecified (principal); N18.6 End stage renal disease; I12.0 Hypertensive chronic kidney disease with stage 5 chronic kidney disease or end stage renal disease; E87.2 Acidosis; E11.22 Type 2 diabetes mellitus with diabetic chronic kidney disease; E78.5 Hyperlipidemia, unspecified; J44.9 Chronic obstructive pulmonary disease, unspecified; K21.9 Gastro-esophageal reflux disease without esophagitis; R74.0 Nonspecific elevation of levels of transaminase and lactic acid dehydrogenase [LDH]; I95.1 Orthostatic hypotension; D50.9 Iron deficiency anemia, unspecified; D72.829 Elevated white blood cell count, unspecified; R00.1 Bradycardia, unspecified
CPT/HCPCS: 36415; 36430; 36511; 71045-TC-FY; 80053; 82272; 82962; 83605; 84484; 85025; 85610; 85730; 86900; 86922; 93005; 93010; 99285-25; P9038; P9058